=== PATIENT | female | born 1995 | race African-American/Black ===

== ENCOUNTER 2016-12-30 16:17 | Observation (INO) ==
[2016-12-30 17:40] LABS: Basophils % 0.3 % (0.0-0.8); Eosinophils # 0.2 10*3/uL (0.0-0.87); Eosinophils % 3.5 % (0.00-10.9); Hematocrit 25.6 VOL% (35.7-47.0); Hemoglobin 8.8 GM/DL (12.0-16.0); Immature Granulocytes % 0.2 %; Immature Granulocytes Absolute 0.01 #; Lymphocytes # 1.4 10*3/uL (1.4-4.0); Mean Corpuscular HGB Conc 34.4 GM/DL (32-36); Mean Corpuscular Hemoglobin 31 PG (27-34); Mean Corpuscular Volume 90.5 FL (87-102); Mean Platelet Volume 11.3 FL (9.6-12.0); Monocytes # 0.8 10*3/uL (0.11-0.8); Monocytes % 12.3 % (1.7-12.7); Neutrophils # 3.7 10*3/uL (1.4-7.4); Neutrophils % 60.7 % (38.7-73.9); Platelet Count 220 T/CUMM (130-400); Red Blood Count 2.83 MC/CUMM (3.8-5.5); Red Cell Distribution Width 12.6 % (9.3-17.3); White Blood Count 6.1 T/CUMM (4-12)
--- NOTE | 2016-12-30 19:09 | Ultrasound Report ---
First trimester OB ultrasound. Indication: Vaginal bleeding. Maternal edema. Maternal nausea. Within the uterus, there is a gestational sac which contains an embryonic pole which has a crown-rump length of 7.9 cm which yields an estimated gestational age of 13 weeks 6 days. Cardiac activity is seen at real-time with a rate of 151 bpm. The organ systems cannot be adequately evaluated. Adjacent to the gestational sac, there is a large inhomogeneous area posteriorly, with increased echogenicity and numerous focal cystic changes. The amniotic fluid volume is subjectively reduced. The maternal ovaries present a normal appearance. There is no free fluid within the pelvis. Impression: There are findings within the uterus raising high suspicion for hydatidiform mole, partial molar . There is a viable 13 week 6 day embryo, which is too small to adequately evaluate for anomalies. Careful clinical correlation, further evaluation, and correlation with lab values recommended. Findings were discussed with Dr. Donaldson in the nonemergent care department The Ultrasound images were captured and stored. PROCEDURE INTERPRETED AT [facility] DEPARTMENT OF RADIOLOGY Final Report Signed by: Dr. Jill Celestin
[2016-12-30 19:32] LABS: Apearance,Urine Slightly Hazy (Clear); Bacteria,Urine Few /HPF (Few); Bilirubin,Urine Negative (Negative); Blood, Urine Small mg/dL (Negative); Glucose,Urine (UA) Negative (Negative); Ketones,Urine Negative (Negative); Mucus,Urine Occasional /LPF (Occasional); Nitrite,Urine Negative (Negative); Protein,Urine 30 MG/DL; RBC,Urine 17 /HPF (0-4); Squamous Epithelial Cell,Urine Occasional /HPF (0-10); Urine Color Yellow (Yellow); Urine Specific Gravity 1.023 (1.001-1.035); WBC,Urine 4 /HPF (0-6)
--- NOTE | 2016-12-30 19:55 | Emergency Department Note ---
Ewa Lara Gwan, am scribing for, and in the presence of, Jonathon Donaldson MD 18:36 . Mendoza Lara Micah, MD, personally performed the services described in this documentation, ascribed by Ellen Mcneil in my presence, and it is both accurate and complete 942 . Arrival - Arrival Chief Complaint: Urogenital - Female Stated Complaint: COMPLICATION WITH 11WKS ED Nursing Triage Note: PT AMBULATORY TO TRIAGE WITH C/O HAVING VAGINAL BLEEDING ONSET YESTERDAY. PT STATES HAVING ABD PAIN WITH N/V. PT ASLO C/O HAVING BILATERAL LOWER EXT. EDEMA, PT IS 11 WKS GESTATION. EST. DUE DATE. 2017. AB-1 Limitations: No Limitations Source: Patient, Old Records Reviewed, RN Notes Reviewed - History of Present Illness HPI Narrative: Patient is a 21 y/o female (, P:0, A:1) who presents to the ED with a c/o vaginal bleeding, bilateral lower extremity edema and N/V with an onset last week. She continued to note that she has been passing clots since last week. Patient stated that she reported her sxs to her OBGYN Dr. Davila today. Patient was then instructed to report to ED for further evaluation. Upon arriving to ED, pt received an ultra sound that is cause for further review. Patient was tearful when explaining possible outcomes and needed medical treatment. No other problems/complaints reported in ED. Onset (ago): day(s) Consistency: constant Severity: moderate Allergies/Adverse Reactions: Allergies Allergy/AdvReac Type Severity Reaction Status Date / Time No Known Allergies Allergy Verified 12/30/16 16:33 Review of System - Review of System 12 point system: reviewed and no additional remarkable complaints except as stated - Review of System Constitutional: Absent: chills, fever Gastrointestinal: Present: as per HPI, nausea, vomiting Genitourinary female: Present: as per HPI Musculoskeletal: Present: as per HPI, other (both legs and feet are swelling) Neurological: Absent: headache Psychiatric: Absent: anxiety, depression Hematological/Lymphatic: Absent: easy bleeding, easy bruising Medical,Surgical,& Family Hx - Medical History Respiratory: History of: Asthma - Social History Smoking Status: Former smoker Frequency of Alcohol Use: None Type of Drug Use: Marijuana Exam Vital Signs: Vital Signs Temperature 97.6 F 12/30/16 18:28 Pulse Rate 73 12/30/16 18:30 Respiratory Rate 18 12/30/16 18:30 Blood Pressure 116/70 12/30/16 18:30 O2 Sat by Pulse Oximetry 99 12/30/16 16:30 - General General appearance: alert, in no apparent distress - Head Head exam: Present: atraumatic, normocephalic - Respiratory Respiratory exam: Present: normal lung sounds bilaterally. Absent: respiratory distress - Cardiovascular Cardiovascular exam: Present: regular rate, normal rhythm, normal heart sounds - Abdominal Exam Abdominal exam: Present: soft. Absent: distention, tenderness - External exam: Present: normal external exam (Minimal amount of bleeding on the perineum) - Extremities Exam Extremities exam: Present: normal inspection - Neurological Exam Neurological exam: Present: alert, oriented X3 - Psychiatric Psychiatric exam: Present: normal affect, normal mood - Skin Skin exam: Present: warm, dry. Absent: rash Course Course Narrative: Patient with significant vaginal bleeding, passing clots. On ultrasound impression is partial molar along with IUP. heart tones present. Spent with Dr. Davila, who is patient's primary [employer]. He recommends admission for observation to the floor, he will round on the patient in the morning. Discussed diagnosis and plan with the patient, they expressed understanding and agreement with the plan. Results - Labs CBC & BMP: 12/30/16 17:27 Lab Results: I have reviewed the patients labs Labs: Laboratory Tests 12/30/16 17:27 WBC 6.1 RBC 2.83 L Hgb 8.8 L Hct 25.6 L Plt Count 220 Laboratory Tests 12/30/16 17:27 HCG Beta Subunit 243421.0 H - Impressions Partial molar along with IUP - Diagnostic Findings Procedure: Ultrasound: report reviewed by me ( ultrasound: There are findings within the uterus raising high suspicion for hydatidiform mole, partial molare . There is a viable 13 week 6 day embryo, which is too small to adequately evaluate for anomalies. Careful clinical correlation, further evaluation, and correlation with lab values recommended. )
[2016-12-30] MEDS ORDERED: MEPERIDINE 25 MG/1 ML VIAL IV PRN (21:17)
[2016-12-30] MEDS ORDERED: ONDANSETRON 4 MG/2 ML VIAL IV PRN (21:18)
[2016-12-31 06:47] LABS: Basophils % 0.4 % (0.0-0.8); Eosinophils # 0.4 10*3/uL (0.0-0.87); Eosinophils % 7.5 % (0.00-10.9); Hematocrit 21.7 VOL% (35.7-47.0); Hemoglobin 7.5 GM/DL (12.0-16.0); Immature Granulocytes % 0.4 %; Immature Granulocytes Absolute 0.02 #; Lymphocytes # 1.4 10*3/uL (1.4-4.0); Lymphocytes % 27.3 % (21.3-54.2); Mean Corpuscular HGB Conc 34.6 GM/DL (32-36); Mean Corpuscular Hemoglobin 31 PG (27-34); Mean Corpuscular Volume 89.3 FL (87-102); Mean Platelet Volume 10.9 FL (9.6-12.0); Monocytes # 0.7 10*3/uL (0.11-0.8); Monocytes % 13.4 % (1.7-12.7); Neutrophils # 2.7 10*3/uL (1.4-7.4); Platelet Count 191 T/CUMM (130-400); Red Blood Count 2.43 MC/CUMM (3.8-5.5); Red Cell Distribution Width 12.7 % (9.3-17.3); White Blood Count 5.2 T/CUMM (4-12)
--- NOTE | 2016-12-31 09:24 | OB/GYN History & Physical ---
History of Present Illness Chief complaint: Vaginal bleeding History of present illness: Ms. Logan is a 21 year old female 13 weeks and 6 days with heavy vaginal bleeding over the last week. Patient admits to passing clots at home. Was evaluated in the emergency room and she also had minimal to moderate type of bleeding. heart tones were obtained with an ultrasound. There was multiple clots inside the uterine cavity. He gave the appearance of a molar . But heart tones were documented on 2 separate occasions. At this particular time patient is stable abdomen is relatively firm approximately 2 fingerbreadths below the umbilicus. Have discussed with this patient because of her decreasing white count the possibility of a subchorionic hemorrhage with could possibly be the culprit. Discussed the precarious nature of this event and will continue to observe and replaced with 2 units of packed RBCs very slowly. Home Medications Medication Instructions Recorded Confirmed Type No Known Home Medications [No 12/30/16 12/30/16 History Known Home Medications] Allergies Allergy/AdvReac Type Severity Reaction Status Date / Time No Known Allergies Allergy Verified 12/30/16 16:33 Medical,Surgical,& Family Hx - Medical History Respiratory: History of: Asthma Reproductive: No history of: Ectopic - Surgical History Thoracic Surgeries: Patient denies;: Organ Transplant - Family History Family History: Reports;: Family Diabetes (mother, maternal grandmother), Family Hypertension (mother, maternal grandmother) - Social History Smoking Status: Former smoker Frequency of Alcohol Use: None 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 - Constitutional Vitals: Vital Signs Temp Pulse Pulse Resp BP BP Pulse Ox 12/31/16 07:19 98.4 F 89 18 128/72 12/31/16 06:37 18 12/31/16 05:55 18 12/31/16 05:00 18 12/31/16 04:00 98.6 F 96 H 18 113/66 12/31/16 03:00 18 12/31/16 02:00 18 12/31/16 01:00 18 12/30/16 23:37 98.6 F 88 18 123/70 12/30/16 20:35 99.4 F 81 20 131/68 12/30/16 20:11 101 H 20 140/70 99 12/30/16 18:30 73 18 116/70 12/30/16 18:28 97.6 F 84 17 141/80 12/30/16 16:30 97.6 F 84 17 141/80 99 Pulse Ox 12/31/16 07:19 99 12/31/16 06:37 12/31/16 05:55 12/31/16 05:00 12/31/16 04:00 99 12/31/16 03:00 12/31/16 02:00 12/31/16 01:00 12/30/16 23:37 99 12/30/16 20:35 99 12/30/16 20:11 12/30/16 18:30 12/30/16 18:28 12/30/16 16:30 General appearance: mild distress - Antepartum / Post Antepartum Exam Cervix - Dilatation: Closed vaginal bleeding in the vaginal vault and no located on the perineum - Head Head exam: Present: normal inspection - Eye Eye exam: Present: EOMI Pupils: Present: VAN - ENT ENT exam: Present: normal exam - Neck Neck exam: Present: normal inspection - Respiratory Respiratory exam: Present: clear to auscultation bilaterally - Breast Breasts: as per HPI Menstruation: as per HPI - Cardiovascular Cardiovascular exam: Present: regular rate and rhythm - GI/Abdominal GI/Abdominal exam: Present: normal bowel sounds - Extremities Exam Extremities exam: Present: normal inspection - Back Exam Back exam: Present: normal inspection - Neurological Exam Neurological exam: Present: alert, oriented X3, normal gait - Psychiatric Psychiatric exam: Present: normal affect - Skin Skin exam: Present: normal color Assessment and Plan (1) Threatened Status: Acute Assessment and plan: Replace blood with packed RBCs, repeat her ultrasound and bedrest. Current Visit: Yes Results - Labs CBC & BMP: 12/31/16 06:40
[2016-12-31] MEDS ORDERED: SODIUM CHLORIDE 0.9% 250 ML IV PRN (09:28)
[2016-12-31] MEDS ORDERED: ONDANSETRON 4 MG TABLET PO PRN (12:58)
--- NOTE | 2016-12-31 13:22 | Ultrasound Report ---
History is vaginal bleeding Comparison with 12/30/2016 Again seen is a prominent diffuse thickening with innumerable tiny cystic spaces throughout the enlarged area of the placenta posteriorly which appears to cover the internal os. No new more focal discrete adjacent hematoma seen. Again seen is a pole with a crown-rump length measurement of 7.47 cm corresponding to a 13 week 4 day gestation with an EDC of 07/04/2017 compared to prior available estimates of 13 weeks 3 days and 07/05/2017 Cardiac activity again seen at real-time Ovaries obscured by uterine enlargement. Amniotic fluid volume is normal Impression: Again seen is likely partial molar likely covering the internal os. cardiac activity is present. PROCEDURE INTERPRETED AT [facility] DEPARTMENT OF RADIOLOGY Final Report Signed by: Dr. Marnie Celestin
--- NOTE | 2016-12-31 16:27 | Ultrasound Report ---
Follow-up OB ultrasound. Indication: Clots in the uterine cavity. Comparison is made with a previous exam from earlier today, and one from yesterday. There is a single intrauterine embryonic pole with a crown-rump length of 78 mm. Cardiac activity is seen at real-time with a rate of 147 bpm. Within the uterus, posterior 2 the embryo, there is a large echogenic mass containing innumerable cystic areas. This fills much of the uterine cavity, and compresses the gestational sac. There is no change compared to the earlier exam. Impression: No interval change is seen. There is a viable intrauterine gestation with a heart rate of 147 bpm. There is a prominent abnormal mass effect within the uterus, echogenic with multiple cystic areas most suggestive ultrasonographically of molar . Clinical correlation recommended. Ultrasound images were captured and stored. PROCEDURE INTERPRETED AT [facility] DEPARTMENT OF RADIOLOGY Final Report Signed by: Dr. Jill Celestin
[2016-12-31 18:18] LABS: Hematocrit 29.2 VOL% (35.7-47.0); Hemoglobin 10.2 GM/DL (12.0-16.0)
[2016-12-31] MEDS: ACETAMINOPHEN/CODEINE 300-30 MG TABLET PO PRN (23:42)
--- NOTE | 2017-01-01 10:14 | Ultrasound Report ---
US follow up OB sonogram Date: 01/01/2017 8:53 AM Indication: Bleeding, heart tones Comparison: 31 December 2016 Findings: Single intrauterine gestation is seen in transversepresentation.. Placenta is in posterior position and appears heterogeneous with numerous cystic areas this approaches cervical os. Appearance is similar to previous exam. measurements estimate gestational age at 14w 1d Estimated weight:85 grams Amniotic fluid volume appears within normal limits heart rate: 160 bpm Impression: Single intrauterine gestation estimated age 14 weeks 1 day. Heterogeneous placenta appearance is similar to previous study. The Ultrasound images were captured and stored. PROCEDURE INTERPRETED AT [facility] DEPARTMENT OF RADIOLOGY Final Report Signed by: Dr. Ottoniel Morgan
[2017-01-01] MEDS: ACETAMINOPHEN/CODEINE 300-30 MG TABLET PO PRN (21:13)
[2017-01-01] MEDS: ALBUTEROL 1.25 MG/3 ML NEB RESP TX SCH (23:28)
[2017-01-02] MEDS: ALBUTEROL 1.25 MG/3 ML NEB RESP TX SCH ×3 (02:40→11:24)
[2017-01-02 07:46] VITALS: BP 128/69
--- NOTE | 2017-01-02 10:35 | Discharge Summary ---
Hospital Course - Hospital Course Hospital Course: 21-year-old female presented to the emergency room with heavy vaginal bleeding passing clots. Ultrasound obtained demonstrated a 14 week intrauterine with large clots involving the uterine wall and placenta. She was observed over the next 2 days which demonstrated diminished vaginal bleeding ultrasound on both occasions demonstrated cardiac activity. We discussed with this patient and her family members the risk of this possibly being a threatened AB. However at this point time we will continue to observe her a complete bed rest and repeat her ultrasound in 1 month. Patient will be discharged follow-up in our office Diagnosis - Discharge Diagnosis (1) Threatened Status: Acute Discharge Plan - Discharge Data Condition at Discharge: Stable Discharge Diet: advance to your usual diet Activity: no lifting, other Weight Bearing at Discharge: full weight bearing, non-weight bearing Contact your physician if you experience:: fever over 101, Bleeding - Discharge Medications New Acetamin/Codeine 300-30 Tab [Tylenol/Codeine #3] 2 tablet PO Q4H PRN #30 tablet PRN Reason: Pain Mild (1-3) - Follow Up or Referral Follow Up: Adan Davila MD [Primary Care Provider] - (3wks) - Forms/Instructions Exam - Constitutional Vitals: Period Temp Pulse Resp BP Sys/Morales Pulse Ox Last 24 Hr 97.8 F-99.6 F 67-86 16-20 116-132/63-83 95-100 DS: Provider Date of admission: 12/30/16 19:40 Primary care physician: Adan Davila MD Attending physician on admission: Adan Davila MD Discharging clinician: Adan Davila MD
--- NOTE | 2017-01-02 11:51 | Ultrasound Report ---
Exam: US follow up OB sonogram, limited Date: 01/02/2017 10:55 AM Indication: heart tones Comparison: 01/01/2017 Findings: Uterus: Uterus measures 21.5 x 10.4 x 17 cm. Gestational sac: Single gestational sac is present. pole: 8.4 cm corresponding to a 14 week 2 day gestation. heart rate 165 bpm Yolk sac: Not visualized Placenta is suspected to be fundal slightly posteriorly positioned. Amniotic fluid is appropriate for this estimated gestational age largest pocket of fluid 1.5 cm Right ovary: Not visualized Left ovary: Not visualized Free fluid: None Bladder: Not visualized Impression: 1. Early intrauterine approximately 14 weeks 2 days gestation with positive heart tones. Follow-up 17-20 weeks recommended for morphology. PROCEDURE INTERPRETED AT [facility] DEPARTMENT OF RADIOLOGY Final Report Signed by: Dr. Chad Grider
== END 2017-01-02 12:45 | disposition home or self-care (01) ==
LOC: N.ED 16:17 → N.EDINP 19:40 → INTOOBSV 19:40 → N.EDINP 20:29 → N.OB 20:35
PROVIDERS: ADMIT Obstetrics & Gynecology; ATTEND Obstetrics & Gynecology

== ENCOUNTER 2017-01-06 14:06 | Inpatient (IN) ==
[2017-01-06 14:57] LABS: Basophils % 0.1 % (0.0-0.8); Eosinophils # 0.3 10*3/uL (0.0-0.87); Eosinophils % 4.7 % (0.00-10.9); Hematocrit 23.1 VOL% (35.7-47.0); Hemoglobin 7.9 GM/DL (12.0-16.0); Immature Granulocytes % 0.4 %; Immature Granulocytes Absolute 0.03 #; Lymphocytes # 1.2 10*3/uL (1.4-4.0); Mean Corpuscular HGB Conc 34.2 GM/DL (32-36); Mean Corpuscular Hemoglobin 31 PG (27-34); Mean Corpuscular Volume 90.2 FL (87-102); Mean Platelet Volume 11.4 FL (9.6-12.0); Monocytes # 0.9 10*3/uL (0.11-0.8); Monocytes % 13.5 % (1.7-12.7); Neutrophils # 4.3 10*3/uL (1.4-7.4); Neutrophils % 63.3 % (38.7-73.9); Platelet Count 204 T/CUMM (130-400); Red Blood Count 2.56 MC/CUMM (3.8-5.5); Red Cell Distribution Width 13.7 % (9.3-17.3); White Blood Count 6.8 T/CUMM (4-12)
[2017-01-06] MEDS ORDERED: SODIUM CHLORIDE 0.9% 500 ML IV STA (15:13)
--- NOTE | 2017-01-06 15:14 | Emergency Department Note ---
Rosanna Lara Rolonda, am scribing for, and in the presence of, Tony Vasquez MD 15:03. Pedro Lara Phillip K, MD, personally performed the services described in this documentation, ascribed by Chad Marte in my presence, and it is both accurate and complete 513 . Arrival - Arrival Chief Complaint: Urogenital - Female Stated Complaint: vaginal bleeding ED Nursing Triage Note: c/o Being apx. 14 weeks preg., states she started bleeding today around 1200 , large amount of bleeding noted., Mode of Arrival: Stretcher Limitations: No Limitations Source: Patient, Old Records Reviewed, RN Notes Reviewed - History of Present Illness HPI Narrative: Pt is a 21 y/o female who presents to the ED for further evaluation of vaginal bleeding with an onset of 1200 today. Pt states that she is 14 weeks gravid and has been having cramps as well. Mother states that there was a "great amount of red blood" coming from the pt's vagina. Pt states that she was in the ED and was d/c . She confirms having multiple sonograms due to bleeding. She is f/u by Dr. Davila. No other complaint/pain in ED. Onset (ago): hour(s) Consistency: constant Severity: moderate, severe Severity scale (1-10): 5 Date of Last Menstrual Period: october [id number] Allergies/Adverse Reactions: Allergies Allergy/AdvReac Type Severity Reaction Status Date / Time No Known Allergies Allergy Verified 12/30/16 16:33 Home Medications: Home Medications Medication Instructions Recorded Confirmed Type No Known Home Medications [No 01/06/17 01/06/17 History Known Home Medications] Review of System - Review of System 12 point system: reviewed and no additional remarkable complaints except as stated - Review of System Constitutional: Absent: chills Eyes: Absent: discharge Head/Ears/Nose/Throat: Absent: earache Respiratory: Absent: cough Cardiovascular: Absent: chest pain Gastrointestinal: Present: abdominal pain (cramps). Absent: nausea Genitourinary female: Present: other (vaginal bleeding). Absent: dysuria Musculoskeletal: Absent: arm pain Skin: Absent: rash Neurological: Absent: headache Psychiatric: Absent: anxiety Endocrine: Absent: cold intolerance Hematological/Lymphatic: Absent: easy bleeding Allergic/Immunologic: Absent: facial swelling Medical,Surgical,& Family Hx - Medical History Respiratory: History of: Asthma Reproductive: No history of: Ectopic - Surgical History Thoracic Surgeries: Patient denies;: Organ Transplant - Family History Family History: Reports;: Family Diabetes (mother, maternal grandmother), Family Hypertension (mother, maternal grandmother) - Social History Smoking Status: Smoker, status unknown Frequency of Alcohol Use: None Type of Drug Use: Marijuana Exam Vital Signs: Vital Signs Temperature 98.9 F 01/06/17 14:07 Pulse Rate 90 01/06/17 14:11 Respiratory Rate 16 01/06/17 14:11 Blood Pressure 150/79 01/06/17 14:11 O2 Sat by Pulse Oximetry 100 01/06/17 14:11 - General General appearance: alert, in no apparent distress - Head Head exam: Present: atraumatic, normocephalic - Eye Eye exam: Present: PERRL, EOMI - ENT ENT exam: Present: mucous membranes moist. Absent: mucous membranes dry - Neck Neck exam: Present: full ROM. Absent: tenderness - Chest Chest inspection: Present: symmetric chest wall rise. Absent: tenderness - Respiratory Respiratory exam: Present: normal lung sounds bilaterally. Absent: wheezes - Cardiovascular Cardiovascular exam: Present: regular rate, normal rhythm, normal heart sounds. Absent: bradycardia - Abdominal Exam Abdominal exam: Present: soft, tenderness, other (uterus is 25 weeks size) - Extremities Exam Extremities exam: Present: full ROM. Absent: tenderness - Back Exam Back exam: Present: full ROM. Absent: tenderness - Neurological Exam Neurological exam: Present: alert, CN II-XII intact - Psychiatric Psychiatric exam: Present: normal affect, normal mood - Skin Skin exam: Present: warm, dry, intact, normal color. Absent: rash Results - Labs CBC & BMP: 01/06/17 14:28 Lab Results: I have reviewed the patients labs Labs: Laboratory Tests 01/06/17 14:28 WBC 6.8 RBC 2.56 L Hgb 7.9 L Hct 23.1 L Lymph % (Auto) 18.0 L [place] % (Auto) 13.5 H Lymph # (Auto) 1.2 L [place] # (Auto) 0.9 H Disposition Clinical Impression: demise, Molar Case discussed with: patient, patient's family Disposition: Still a Patient Condition: Guarded Additional Instructions: Admit to Dr. Davila
[2017-01-06] MEDS ORDERED: SODIUM CHLORIDE 0.9% 250 ML IV PRN (15:21)
[2017-01-06] MEDS ORDERED: BISACODYL 10 MG SUPP RECTAL PRN ×2 (15:23→20:14)
[2017-01-06] MEDS ORDERED: MAGNESIUM HYDROXIDE SUSP 30 ML UDCUP PO PRN (15:23)
[2017-01-06] MEDS ORDERED: MORPHINE 2 MG/1 ML SYRINGE IV PRN (15:23)
[2017-01-06] MEDS ORDERED: ACETAMINOPHEN 325 MG TABLET PO PRN ×2 (15:23→20:14)
[2017-01-06] MEDS ORDERED: ONDANSETRON 4 MG/2 ML VIAL IV PRN ×2 (15:23→16:55)
[2017-01-06] MEDS ORDERED: LACTATED RINGERS 1,000 ML IV SCH ×2 (15:30→17:00)
[2017-01-06] MEDS ORDERED: MEPERIDINE 50 MG/1 ML VIAL IV PRN (16:55)
--- NOTE | 2017-01-06 16:57 | Ultrasound Report ---
Exam: US follow up OB sonogram Date: 01/06/2017 2:45 PM Indication: Vaginal bleeding Comparison: 01/02/2017 ultrasound Findings: Single fetus in cephalic presentation. Placenta is not definitely identified. [employer]-rump length equals 8.5 cm, which is essentially unchanged from the prior study dated 01/02/2017. There is a 20 cm heterogeneous mass occupying a majority of the posterior uterus with multifocal areas of hypoechogenicity. Amniotic fluid volume is qualitatively normal. Cervical length: 3.7 cm heart rate: heart rate is not visualized at this time. structures: structural survey not performed Maternal ovaries not visualized. Ultrasound images were captured and stored. Impression: 1. At this time, heart rate is not visualized, most compatible with demise. Correlate clinically and with beta hCG. 2. Similar large heterogeneous masslike soft tissue within the posterior uterus is suspicious for the sonographic appearance of molar , but is indeterminant. Critical findings of demise and possible molar discussed with Evelyne Covington RN, in the OB unit, via telephone at approximately 4:50 PM on the day of the examination. PROCEDURE INTERPRETED AT [facility] DEPARTMENT OF RADIOLOGY Final Report Signed by: Nikhil Orta
--- NOTE | 2017-01-06 18:34 | OB/GYN History & Physical ---
History of Present Illness Chief complaint: 14 weeks gestation with vaginal bleeding History of present illness: Ms. Logan is a 21 year old female 21-year-old who was admitted approximately 1 week ago with vaginal bleeding. Ultrasound at that time demonstrated a 14.2 week gestation cardiac activity and intrauterine mass. The possibility of a molar was discussed. The patient had 2 units of blood with her last hospitalization, bleeding diminish, and the pelvic pain resolved. Cardiac activity was still noted at the time of this patient's discharge. She returns at this time with heavy vaginal bleeding and increasing abdominal pressure and no cardiac activity. This patient will be taken to the operating room for further evaluation possible evacuation of the uterus. There is always a possibility that this bleeding may be persistent and may need to the removal of the uterus. Will type and cross this person for 2 units of blood and transfusion in route to the OR. Also will have 2 units of blood on hold. These findings were also discussed with the family . Home Medications Medication Instructions Recorded Confirmed Type No Known Home Medications [No 01/06/17 01/06/17 History Known Home Medications] Allergies Allergy/AdvReac Type Severity Reaction Status Date / Time No Known Allergies Allergy Verified 12/30/16 16:33 Medical,Surgical,& Family Hx - Medical History Respiratory: History of: Asthma Musculoskeletal: History of: Musculoskeletal Problems (pins in knee) Reproductive: No history of: Ectopic - Surgical History Thoracic Surgeries: Patient denies;: Organ Transplant Reproductive Surgeries: Surgical HX of;: Dilation and Curettage (age 13) - Family History Family History: Reports;: Family Cancer (mgp), Family Diabetes (mother, maternal grandmother), Family Hypertension (mother, maternal grandmother) - Social History Smoking Status: Never smoker Frequency of Alcohol Use: None 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 - Constitutional Vitals: Vital Signs Temp Pulse Pulse Resp BP BP Pulse Ox 01/06/17 17:45 97.5 F L 106 H 20 133/74 98 01/06/17 17:40 97.6 F 81 18 126/77 100 01/06/17 17:35 98 F 90 18 123/69 100 01/06/17 17:23 98.4 F 102 H 22 135/98 100 01/06/17 16:45 98.4 F 103 H 22 151/84 01/06/17 16:00 86 18 140/78 100 01/06/17 15:45 88 16 126/85 100 01/06/17 15:15 76 16 134/66 100 01/06/17 14:45 81 16 141/70 100 01/06/17 14:11 90 16 150/79 100 01/06/17 14:07 98.9 F 85 16 150/79 100 Pulse Ox 01/06/17 17:45 01/06/17 17:40 01/06/17 17:35 01/06/17 17:23 01/06/17 16:45 99 01/06/17 16:00 01/06/17 15:45 01/06/17 15:15 01/06/17 14:45 01/06/17 14:11 01/06/17 14:07 General appearance: mild distress - Antepartum / Post Antepartum Exam Cervix - Dilatation: Heavy vaginal bleeding - Head Head exam: Present: normal inspection - Eye Eye exam: Present: EOMI Pupils: Present: VAN - ENT ENT exam: Present: normal exam - Neck Neck exam: Present: normal inspection - Respiratory Respiratory exam: Present: clear to auscultation bilaterally - Breast Breasts: as per HPI Menstruation: as per HPI - Cardiovascular Cardiovascular exam: Present: regular rate and rhythm - GI/Abdominal GI/Abdominal exam: Present: normal bowel sounds, distended - Extremities Exam Extremities exam: Present: normal inspection - Back Exam Back exam: Present: normal inspection - Neurological Exam Neurological exam: Present: alert - Psychiatric Psychiatric exam: Present: normal affect - Skin Skin exam: Present: normal color Assessment and Plan (1) Incomplete Status: Acute Assessment and plan: Heavy vaginal bleeding incomplete AB, 14+ weeks gestation with intra-abdominal intrauterine bleeding or a molar . It is uncertain at this time to be definitive will prepare for transfusion, blood products on hold and also the possibility of a hysterectomy may be entertained. We will continue with present therapy and surgery is notified at this time. Current Visit: Yes Results - Labs CBC & BMP: 01/06/17 14:28
[2017-01-06] MEDS ORDERED: ROCURONIUM 100 MG/10 ML VIAL IV ONE (19:25)
[2017-01-06] MEDS ORDERED: PROPOFOL 200 MG/20 ML VIAL IV ONE (19:25)
[2017-01-06] MEDS ORDERED: KETOROLAC 30 MG/1 ML VIAL ONE (19:25)
[2017-01-06] MEDS ORDERED: LIDOCAINE 2% 5 ML VIAL ONE (19:25)
[2017-01-06] MEDS ORDERED: SUCCINYLCHOLINE 200 MG/10 ML VIAL ONE (19:25)
[2017-01-06] MEDS ORDERED: ONDANSETRON 4 MG/2 ML VIAL ONE ×2 (19:25→20:39)
[2017-01-06] MEDS ORDERED: DEXAMETHASONE 10 MG/1 ML VIAL ONE (19:25)
[2017-01-06] MEDS ORDERED: OXYTOCIN 10 UNIT/ML VIAL ONE (19:34)
[2017-01-06] MEDS ORDERED: METHYLERGONOVINE 0.2 MG/1 ML AMP ONE (19:40)
--- NOTE | 2017-01-06 20:12 | Operative Note ---
Date of procedure: 01/06/17 Procedure: Preoperative diagnosis: [] Missed AB, possibility of a molar at approximately 14 weeks gestation. Fundal height is measuring approximately 22 cm Postoperative diagnosis: Same ,awaiting final path Anesthesia: General. endotracheal anesthesia Estimated blood loss: [] 1500 cc to 1999 Surgeon: Dr. Davila Procedure: Suction curettage The patient was taken to operating suite and placed in supine position and preparation of the perineum. A weighted speculum was placed in the posterior portion vagina and a single-tooth tenaculum was used to grasp the anterior lip of the cervix. The cervix was dilated to [10] Kiswahili A suction curette was then placed inside. Multiple extensive scraping was obtained in all 4 quadrants. There was noticeable parts of arms leg and the cranium was also removed. [A significant amount of grape like tissue was obtained] at this particular time. 30 units of Pitocin was administered intravenously. Hemostasis was maintained at this particular time. Patient was extubated in the operating room and taken to recovery room in stable condition. Patient was administered 2 units prior to surgery as well as 1 unit intraoperatively. There is approximately 3 units of packed RBCs on hold Surgeon / Physician: Adan Davila Results - Labs CBC & BMP: 01/06/17 14:28 Discharge Plan - Discharge Medications No Action No Known Home Medications [No Known Home Medications] - Follow Up or Referral - Forms/Instructions
[2017-01-06] MEDS ORDERED: IBUPROFEN 800 MG TABLET PO PRN (20:14)
[2017-01-06] MEDS ORDERED: HYDROCORTISONE 2.5% RECTAL CREAM 30 GM TUBE TOP PRN (20:14)
[2017-01-06] MEDS ORDERED: MEASLES/MUMPS/RUBELLA VACCINE 0.5 ML VIAL SUBCUT ONE (20:14)
[2017-01-06] MEDS ORDERED: RHO(D) IMMUNE GLOBULIN 300 MCG SYRINGE IM ONE (20:14)
[2017-01-06] MEDS ORDERED: OXYTOCIN/LR 20 UNIT/1,000 ML BAG IV ONE (20:14)
[2017-01-06] MEDS ORDERED: DIPH/TET/ACEL PERT BOOSTER VACCINE 0.5 ML VIAL IM ONE (20:14)
[2017-01-06] MEDS ORDERED: oxyCODONE/ACETAMINOPHEN 5-325 MG TABLET PO PRN ×2 (20:14)
[2017-01-06] MEDS ORDERED: WITCH HAZEL PADS 100/JAR TOP PRN (20:14)
[2017-01-06] MEDS ORDERED: LANOLIN 50% CREAM 0.3 OZ TUBE TOP PRN (20:14)
[2017-01-06] MEDS ORDERED: BENZOCAINE 20%/MENTHOL 0.5% SPRAY 56 GM CAN TOP PRN (20:14)
--- NOTE | 2017-01-06 20:21 | Anesthesia Post-Op ---
Anesthesia Post OP - Post Ansesthetic Evaluation Patient seen in post op: Yes Resp: within normal limits CV: within normal limits Mental: within normal limits Temp: within normal limits [id number]: within normal limits Nausea and Vomiting: within normal limits Pain: within normal limits
[2017-01-06] MEDS ORDERED: LACTATED RINGERS 1,000 ML IV ONE (20:29)
[2017-01-06] MEDS ORDERED: fentaNYL 100 MCG/2 ML VIAL ONE (20:29)
[2017-01-06] MEDS ORDERED: MIDAZOLAM 2 MG/2 ML VIAL ONE (20:29)
[2017-01-06] MEDS ORDERED: SEVOFLURANE 1 UNIT/15 MINUTE INH ONE (20:29)
[2017-01-06] MEDS ORDERED: HYDROmorphone 2 MG/1 ML VIAL ONE (20:39)
[2017-01-06] MEDS ORDERED: HYDROmorphone 2 MG/1 ML VIAL IV PRN (20:45)
[2017-01-06] MEDS ORDERED: DOCUSATE SODIUM 100 MG CAPSULE PO SCH ×2 (21:00)
[2017-01-06] MEDS ORDERED: OXYTOCIN/LR 30 UNIT/1,000 ML BAG IV SCH (23:00)
[2017-01-07] MEDS: ONDANSETRON 4 MG/2 ML VIAL IV PRN ×2 (00:41→21:03)
[2017-01-07 05:52] LABS: Basophils % 0.1 % (0.0-0.8); Hematocrit 32.7 VOL% (35.7-47.0); Immature Granulocytes % 0.3 %; Immature Granulocytes Absolute 0.03 #; Lymphocytes # 0.6 10*3/uL (1.4-4.0); Lymphocytes % 6.7 % (21.3-54.2); Mean Corpuscular HGB Conc 34.3 GM/DL (32-36); Mean Corpuscular Hemoglobin 30 PG (27-34); Monocytes # 0.1 10*3/uL (0.11-0.8); Monocytes % 1.2 % (1.7-12.7); Neutrophils # 8.3 10*3/uL (1.4-7.4); Neutrophils % 91.7 % (38.7-73.9); Red Cell Distribution Width 14.6 % (9.3-17.3)
[2017-01-07 06:03] LABS: Red Blood Count 3.76 MC/CUMM (3.8-5.5); White Blood Count 9.1 T/CUMM (4-12)
[2017-01-07 06:04] LABS: Hemoglobin 11.2 GM/DL (12.0-16.0); Platelet Count 163 T/CUMM (130-400)
[2017-01-07 06:12] LABS: Lymphocytes 6 % (20-55); Segmented Neutrophils 93 % (50-85); Total Cells Counted 100
[2017-01-07 06:13] LABS: Hypochromasia 1+; Microcytosis 1+
[2017-01-07 06:14] LABS: Platelet Estimate Adequate
[2017-01-07] MEDS: FERROUS SULFATE 325 MG TABLET PO SCH (21:01)
[2017-01-08] MEDS ORDERED: DOCUSATE SODIUM 100 MG CAPSULE PO PRN (09:03)
[2017-01-08] MEDS: FERROUS SULFATE 325 MG TABLET PO SCH (09:08)
[2017-01-08] MEDS: ONDANSETRON 4 MG/2 ML VIAL IV PRN (09:51)
[2017-01-08] MEDS ORDERED: LORazepam 2 MG/1 ML VIAL IV PRN (10:39)
[2017-01-08] MEDS ORDERED: SERTRALINE 50 MG TABLET PO SCH (11:00)
--- NOTE | 2017-01-08 12:18 | Pathology Report from [facility] ---
[facility] – [place] ACCESSION # : [id number] PATIENT NAME : Carlos Quezada ORDERING DR : LINSEY GUZMAN MD CLINICAL HX: Molar POST-OP DX: Same SPECIMEN INFO: Uterine contents GROSS DESCRIPTION: Received in formalin in two containers both labeled CARLOS QUEZADA consists of an aggregate of hemorrhagic tissue measuring 24.0 x 14.0 cm. Chorionic villi and tissue are identified along with numerous clear cyst-like structures . Expansion Envelope Maker Hand sections are submitted in cassettes A-J. DIAGNOSIS FOR CARLOS QUEZADA: UTERINE CONTENTS, D&C: Hydropic chorionic villi with trophoblastic proliferation admixed with blood, decidua and parts, c/w partial molar gestation. Recommend followup HCGs. COLLECTED DATE: 01/07/2017 [facility] REPORT DATE: 01/08/2017 ELECTRONICALLY SIGNED BY: Tamara Hamilton M.D. 01/08/2017 - 9:58:06 [facility]TDD
[2017-01-08 15:51] VITALS: BP 139/74
--- NOTE | 2017-01-22 15:03 | Event Note ---
This is Dr. Davila dictating an addendum to Lizz Logan. This patient was admitted on 06 January with vaginal bleeding positive ultrasound that also demonstrated cardiac activity. The patient was previously admitted a week prior to with vaginal bleeding and a low count where she received 2 units of packed RBCs at that time. The ultrasound demonstrated the possibility of a mixed molar . On this admission her gestational age was approximately 14 weeks per the uterus was measuring almost 24 cm in size suggesting strongly that this patient had a molar . Again she also experienced heavy bleeding. The episode occurred in the evening she was stable reasonable and we decided to administer the 2 units of packed RBCs and then subsequently prepare this person for a suction dilatation curettage with the possibility of a hysterectomy. All of these findings was discussed with the patient as well as her parent that were involved in her care. The surgical team was notified and this case was discussed with anesthesia as well. After patient received the 2 units of packed RBCs she was then taken to surgery for a suction D&C. Ruddy intraoperative case this patient lost approximately 4423-8601 cc of blood. There was mixed products of conception demonstrating a molar as well as products of a undeveloped fetus. Patient was taken over to surgery over to the recovery room whereupon she received another 2 units of packed RBCs IV Pitocin that was administered throughout the evening. On 07 January this patient was still extremely weak completely depressed unable to open her eyes, crying uncontrollably. Her mother had mentioned that this patient been hospitalized for severe depression because of a an event that happened with another at the age of 13. She had not been taking her medication that had been prescribed in the past Clonopin and 2 other antidepressants that she was unable to adequately articulate. We initiated Ativan 2 mg to be administered every 4-6 hours we continued her IV. And we also repeated her blood counts as well. 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 This patient had mentioned repetitive episodes of suicidal, as well as homicidal tendencies. We are able to obtain a bed on 08 January at [facility] in [facility] and at that point time this patient was transferred to this facility. The patient was physically stable account, but is emotionally she was a total wreck. Patient will be scheduled at for a follow-up in my office after she has been discharged from [facility]. Thanks very much for the dictation
== END 2017-01-08 17:35 | DRG 775 ==
LOC: EDUNIT# → N.EDINP 14:06 → N.ED 14:06 → OBSVTOIN 15:21 → N.OB 16:40
PROVIDERS: ADMIT Obstetrics & Gynecology; ATTEND Obstetrics & Gynecology

== ENCOUNTER 2020-10-08 07:05 | Inpatient (IN) ==
[~2020-10-08 07:05] MED LIST: LACTATED RINGERS 1,000 ML IV ONE; MEPERIDINE 50 MG/1 ML VIAL IV ONE; ONDANSETRON 4 MG/2 ML VIAL IV ONE; ONDANSETRON 4 MG/2 ML VIAL IV PRN
[2020-10-08] MEDS ORDERED: ePHEDrine 50 MG/ML VIAL IV PRN (07:06)
[2020-10-08] MEDS ORDERED: LACTATED RINGERS 1,000 ML IV ONE (07:06)
[2020-10-08] MEDS ORDERED: CITRIC ACID/SODIUM CITRATE 30 ML UDCUP PO ONE (07:06)
[2020-10-08] MEDS ORDERED: NALOXONE 0.4 MG/ML VIAL IV PRN (07:06)
[2020-10-08] MEDS ORDERED: FAMOTIDINE 20 MG/2 ML VIAL IV ONE (07:06)
[2020-10-08 07:44] LABS: Basophils % 0.2 % (0.0-0.8); Hematocrit 35.4 VOL% (35.7-47.0); Hemoglobin 11.7 GM/DL (12.0-16.0); Immature Granulocytes % 0.7 %; Immature Granulocytes Absolute 0.11 #; Lymphocytes # 1.1 10*3/uL (1.4-4.0); Lymphocytes % 7.2 % (21.3-54.2); Mean Corpuscular HGB Conc 33.1 GM/DL (32-36); Mean Corpuscular Volume 92.9 FL (87-102); Mean Platelet Volume 11.3 FL (9.6-12.0); Monocytes % 6.5 % (1.7-12.7); Neutrophils % 85.4 % (38.7-73.9); Platelet Count 253 T/CUMM (130-400); Red Blood Count 3.81 MC/CUMM (3.8-5.5); Red Cell Distribution Width 14.1 % (9.3-17.3); White Blood Count 15.3 T/CUMM (4-12)
[2020-10-08 08:05] LABS: Albumin 2.8 G/DL (3.4-5.0); Bilirubin,Total 0.5 MG/DL (0.2-1.0); Osmolality,Calculated 272.7 MOS/KG (273-304); Potassium 4.1 MMOL/L (3.5-5.1); Total Protein 6.7 G/DL (6.4-8.2); Uric Acid 3.4 MG/DL (2.6-6.0)
[2020-10-08] MEDS: fentaNYL 2 MCG/ROPIV 0.2% EPID 100 ML EPIDURAL SCH ×2 (08:10→17:22)
[2020-10-08] MEDS ORDERED: OXYTOCIN/LR 20 UNIT/1,000 ML BAG IV SCH (11:00)
[2020-10-08 12:07] LABS: Bilirubin,Urine Negative (Negative); Blood, Urine Negative (Negative); Glucose,Urine (UA) Negative (Negative); Ketones,Urine 5 mg/dL (Negative); Mucus,Urine Occasional /LPF (Occasional); Nitrite,Urine Negative (Negative); Protein,Urine Negative; RBC,Urine <1 /HPF (0-4); Squamous Epithelial Cell,Urine Occasional /HPF (0-10); Urine Appearance CLEAR (Clear); Urine Color Yellow (Yellow); Urine Specific Gravity 1.013 (1.001-1.035); Urine Urobilinogen < 2.0 EU/DL (0.2-1.0)
[2020-10-08] MEDS ORDERED: LACTATED RINGERS 1,000 ML IV SCH (16:00)
[2020-10-08] MEDS ORDERED: METHYLERGONOVINE 0.2 MG/1 ML AMP ONE (19:04)
[2020-10-08] MEDS ORDERED: miSOPROStoL 200 MCG TABLET ONE (19:04)
[2020-10-08] MEDS ORDERED: TRANEXAMIC ACID 1,000 MG/10 ML VIAL ONE (19:04)
[2020-10-08] MEDS ORDERED: OXYTOCIN/LR 20 UNIT/1,000 ML BAG IV ONE ×2 (19:04→19:38)
[2020-10-08] MEDS ORDERED: CARBOPROST TROMETHAMINE 250 MCG/ML AMP IM ONE (19:04)
[2020-10-08] MEDS ORDERED: MEPERIDINE 50 MG/1 ML VIAL ONE (19:10)
[2020-10-08] MEDS ORDERED: MEPERIDINE 50 MG/1 ML VIAL IV ONE (19:16)
[2020-10-08 19:26] LABS: Cord Arterial Blood HCO3 20.9 MMOL/L
[2020-10-08 19:29] LABS: Cord Venous Blood HCO3 22.2 MMOL/L; Cord Venous Blood PCO2 43.5 MMHG; Cord Venous Blood PO2 < 17
[2020-10-08] MEDS ORDERED: BISACODYL 10 MG SUPP RECTAL PRN (19:38)
[2020-10-08] MEDS ORDERED: DIPH/TET/ACEL PERT BOOSTER VACCINE 0.5 ML VIAL IM ONE (19:38)
[2020-10-08] MEDS ORDERED: RHO(D) IMMUNE GLOBULIN 300 MCG SYRINGE IM ONE (19:38)
[2020-10-08] MEDS ORDERED: oxyCODONE/ACETAMINOPHEN 5-325 MG TABLET PO PRN (19:38)
[2020-10-08] MEDS ORDERED: BENZOCAINE 20%/MENTHOL 0.5% SPRAY 56 GM CAN TOP PRN (19:38)
[2020-10-08] MEDS ORDERED: HYDROCORTISONE 2.5% RECTAL CREAM 30 GM TUBE TOP PRN (19:38)
[2020-10-08] MEDS ORDERED: LANOLIN 50% CREAM 0.3 OZ TUBE TOP PRN (19:38)
[2020-10-08] MEDS ORDERED: MEASLES/MUMPS/RUBELLA VACCINE 0.5 ML VIAL SUBCUT ONE (19:38)
[2020-10-08] MEDS ORDERED: WITCH HAZEL PADS 100/JAR TOP PRN (19:38)
[2020-10-08] MEDS ORDERED: ACETAMINOPHEN 325 MG TABLET PO PRN (19:38)
[2020-10-08] MEDS ORDERED: ONDANSETRON 4 MG/2 ML VIAL IV PRN (19:38)
[2020-10-08] MEDS: IBUPROFEN 800 MG TABLET PO PRN (21:05)
[2020-10-09] MEDS ORDERED: oxyCODONE/ACETAMINOPHEN 5-325 MG TABLET PO PRN (01:44)
[2020-10-09 05:22] LABS: Basophils # 0.1 10*3/uL (0.0-0.2); Basophils % 0.3 % (0.0-0.8); Eosinophils % 0.1 % (0.00-10.9); Hematocrit 30.5 VOL% (35.7-47.0); Hemoglobin 10.1 GM/DL (12.0-16.0); Immature Granulocytes % 1.3 %; Immature Granulocytes Absolute 0.34 #; Lymphocytes # 1.8 10*3/uL (1.4-4.0); Lymphocytes % 6.7 % (21.3-54.2); Mean Corpuscular HGB Conc 33.1 GM/DL (32-36); Mean Corpuscular Volume 92.4 FL (87-102); Mean Platelet Volume 11.8 FL (9.6-12.0); Monocytes % 10.5 % (1.7-12.7); Neutrophils % 81.1 % (38.7-73.9); Platelet Count 206 T/CUMM (130-400); Red Cell Distribution Width 14.2 % (9.3-17.3); White Blood Count 26.5 T/CUMM (4-12)
[2020-10-09 05:49] LABS: Band Neutrophils 1 % (0-10); Lymphocytes 8 % (20-55); Segmented Neutrophils 86 % (50-85); Total Cells Counted 100
[2020-10-09 05:50] LABS: Hypochromasia Slight; Microcytosis Slight; Platelet Estimate Adequate
[2020-10-09] MEDS: IBUPROFEN 800 MG TABLET PO PRN ×2 (07:27→20:58)
[2020-10-09] MEDS: DOCUSATE SODIUM 100 MG CAPSULE PO SCH ×3 (08:48→20:58)
[2020-10-09] MEDS: oxyCODONE/ACETAMINOPHEN 5-325 MG TABLET PO PRN ×2 (08:48→22:05)
[2020-10-10 08:04] VITALS: BP 116/72
[2020-10-10] MEDS: DOCUSATE SODIUM 100 MG CAPSULE PO SCH (08:43)
== END 2020-10-10 14:28 | disposition home or self-care (01) | DRG 560 ==
LOC: N.LD → N.OB 21:54
PROVIDERS: ADMIT Obstetrics & Gynecology; ATTEND Obstetrics & Gynecology